=== PATIENT | female | born 1975 | race Caucasian/White ===

== ENCOUNTER → 2016-04-29 | Emergency (ER) | payer MEDICAID ==
[~2016-04-29] VITALS: Ht 167.6 cm; Wt 54.4 kg
[~2016-04-29] MED LIST: ALPRAZOLAM1 MG ORAL; ANTI-ITCH28 G1 TP; ANTIVERT25 MG ORAL; AZITHROMYCIN250 MG PO; BACITRACIN1 APPLIC TOPIC; CEPHALEXIN500 MG ORAL; CIPRO500 MG PO; GOLYTELY4000 ML PO; IBUPROFEN600 MG PO; KEFLEX500 MG ORAL; KENALOG 0.1% CR15 GM APPLIC; LORAZEPAM1 MG ORAL; ONDANSETRON ODT4 MG ORAL; PEPCID20 MG ORAL; PREDNISONE20 MG ORAL; PROMETHAZINE/COD5 ML PO
[2016-04-29 14:25] VITALS: BP 124/89
[2016-04-29] MEDS: Ketorolac 60mg Inj IM ONE (15:22)
[2016-04-29] MEDS: Ondansetron ODT 8mg tab ORAL ONE (15:22)
[2016-04-29 16:04] LABS: APPEARANCE,URINE SLIGHTLY CLOUDY; KETONES,URINE NEGATIVE (NEGATIVE); LEUKOCYTE ESTERASE ,URINE NEGATIVE (NEGATIVE); NITRITE,URINE NEGATIVE (NEGATIVE); PH,URINE 7 (4.5-8.0); PROTEIN,URINE NEGATIVE (NEGATIVE); UROBILINOGEN,URINE NORMAL MG/DL (0.0-1.0)
--- NOTE | 2016-04-29 16:14 | Emergency Room Report ---
History of Present Illness General Chief Complaint: Nausea, Vomiting, and Diarrhea Source: Patient Present Illness HPI 40 YO F walk-in patient endorses 1 month of intermittent nausea and non-bilious , non-bloody vomiting. Worse today. Denies associated fever/chills, abd pain, urinary complaints. + sick contact in daughter at home. Siva previous abd surgeries. Not taking any OTC meds. Also c/o left sided neck pain, worse with movement over last couple of days. Allergies: Coded Allergies: No Known Allergies (Unverified , 12/22/11) Patient History Past Medical History: none Past Surgical History: none Pertinent Family History: none Social History: Denies: alcohol use, drug use, smoking Last Menstrual Period: 04/16/2016 Now: No : 2 Para: 2 Immunizations: UTD Reviewed Nursing Documentation: PMH: Agreed, PSxH: Agreed Review of Systems All Other Systems: negative except mentioned in HPI Physical Exam Vital Signs Date Time Temp Pulse Resp B/P Pulse Ox O2 Delivery O2 Flow Rate FiO2 04/29/16 14:25 98.1 97 16 124/89 99 Room Air Sp02 EP Interpretation: reviewed, normal Head: atraumatic ENT: normal ENT inspection, hearing grossly normal, normal voice Neck: normal inspection, full range of motion, supple, no bony tend, limited range of motion, other - TTp on posterior left SCM with tightness. Worse with looking to left Respiratory: normal inspection, lungs clear, normal breath sounds, no respiratory distress, no retraction, no wheezing Cardiovascular #1: regular rate, rhythm, no edema Gastrointestinal: normal inspection, normal bowel sounds, non tender, soft, no guarding, no hernia Genitourinary: no CVA tenderness Musculoskeletal: normal inspection, back normal, normal range of motion, Jocelyne' s Sign negative Neurologic: normal inspection, alert, oriented x3, responsive, motor strength/ tone normal, speech normal Psychiatric: normal inspection, judgement/insight normal, mood/affect normal Skin: normal inspection, normal color, no rash Lymphatic: normal inspection Medical Decision Making Diagnostic Impression: Primary Impression: Neck muscle spasm Additional Impression: Nausea & vomiting Qualified Codes: R11.2 - Nausea with vomiting, unspecified ER Course 40 YOF with nausea/vomiting without abd pain. VSS. Afebrile. No focal abd ttp on serial exam. Improved with PO zofran Neck pain/spasm improved with IM toradol UA neg LE, nitrites. 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 04/29/16 Ondansetron Odt* (ZOFRAN ODT*) 4 Mg Tab.rapdis 4 MG ORAL BID, #20 TAB 0 Refills Prov: KATINA SALEH M.D. 04/29/16 Patient Instructions: Cervical Sprain, [id number], Nausea and Vomiting, Adult , [id number] Additional Instructions: - Eat lots of small, lite meals - Bananas/rice/apple sauce/toast and bland food until you feel completely better - Take Pepcid twice daily for 1 week - Take zofran as needed 2x a day for nausea Return to ER for worsening nausea/vomiting or severe abdominal pain KATINA SALEH M.D. Apr 29, 2016 16:14
[2016-04-29 16:27] LABS: BACTERIA,URINE FEW /HPF; SQUAMOUS EPITHELIAL CELL,UR MODERATE /LPF (NONE/OCC); WBC,URINE 0-2 /HPF (0 - 2)
== END | disposition home or self-care (01) ==
LOC: EMR 15:10
DX: M62.838 Other muscle spasm (principal); R11.2 Nausea with vomiting, unspecified
CPT/HCPCS: 81003; 81025; 96372; 99284; Q0162

== ENCOUNTER 2017-05-26 13:53 | Emergency (ER) | payer SELFPAY ==
[~2017-05-26] VITALS: Ht 167.6 cm; Wt 59.0 kg
--- NOTE | 2017-05-26 15:28 | Emergency Room Report ---
History of Present Illness General Chief Complaint: Sore Throat Source: Patient, Medical Record Present Illness HPI 41 YO Female presents to the ED c/o : right sided sore throat and nasal congestion x 2 weeks, worsening symptoms. Denies fevers and chills. Reports right ear ache as well. pain is 10/10 in severity. exacerbated with swallowing. denies neck pain or stiffness. Patient states that she finished a course of antibiotics was prescribed to her by her primary care she reports she took amoxicillin and did not have any relief. Patient reports some initial treatment of her symptoms however symptoms return immediately after finishing antibiotics. Denies hoarseness or changes in her voice. Denies inability to swallow as well as her liquids. Denies CP, Palpitations, LOC, AMS, dizziness, Changes in Vision, Sensation, paresthesias, or a sudden severe headache. Allergies: Coded Allergies: No Known Allergies (Unverified , 12/22/11) Patient History Past Medical History: see triage record Past Surgical History: none Pertinent Family History: none Last Menstrual Period: 05/06/17 Immunizations: UTD Reviewed Nursing Documentation: PMH: Agreed, PSxH: Agreed Nursing Documentation-PMH Past Medical History: No History, Except For Review of Systems All Other Systems: negative except mentioned in HPI Physical Exam Vital Signs Date Time Temp Pulse Resp B/P (MAP) Pulse Ox O2 Delivery O2 Flow Rate FiO2 05/26/17 14:02 98.6 107 18 101/36 98 Room Air 98.6 Sp02 EP Interpretation: reviewed, normal General Appearance: no apparent distress, alert, GCS 15, non-toxic Head: normocephalic, atraumatic Eyes: bilateral eye normal inspection, bilateral eye PERRL ENT: hearing grossly normal, no angioedema, normal voice, TMs + canals normal - mild serous fluid noted in the right ear, no bulging or erythema of the TM. , uvula midline, moist mucus membranes, nasal congestion, tonsillar swelling - bilateral, no Pillar swelling, or asymmetrical fullness, uvula is midline. , pharyngeal erythema Neck: full range of motion, no meningismus, no bony tend Respiratory: chest non-tender, lungs clear, normal breath sounds, no rhonchi, no wheezing, speaking full sentences Cardiovascular #1: regular rate, rhythm, tachycardia - initial triage tachycardic 107, re-measurement is 81 Musculoskeletal: back normal, gait/station normal, normal range of motion, non- tender Neurologic: alert, oriented x3, responsive, motor strength/tone normal, sensory intact, speech normal, grossly normal Psychiatric: judgement/insight normal Skin: normal color, no rash, warm/dry, well hydrated Lymphatic: no adenopathy Medical Decision Making PA Attestation Dr. bingham is my supervising Physician whom patient management has been discussed with. Diagnostic Impression: Primary Impression: Pharyngitis Qualified Codes: J02.0 - Streptococcal pharyngitis ER Course Pt. presents to the ED c/o : right sided sore throat and nasal congestion x 2 weeks, worsening symptoms. Denies fevers and chills. Reports right ear ache as well. pain is 10/10 in severity. exacerbated with swallowing. denies neck pain or stiffness. Ddx considered but are not limited to: pharyngitis, strep, [employer], ludwigs angina, abscess, URI Vital signs: are WNL, pt. is afebrile H&PE are most consistent with: pharyngitis presumed strep. ORDERS: None required at this time as the diagnosis is clinical ED INTERVENTIONS: -Decadron IM given strict ED return precautions for worsening of symtoms, d/w pt. if returns will need imaging. conservative trial for now. DISCHARGE: At this time pt. is stable for d/c to home. Will provide printed patient care instructions, and any necessary prescriptions. Care plan and follow up instructions have been discussed with the patient prior to discharge. Last Vital Signs Date Time Temp Pulse Resp B/P (MAP) Pulse Ox O2 Delivery O2 Flow Rate FiO2 05/26/17 14:02 98.6 107 18 101/36 98 Room Air 98.6 Disposition: HOME, SELF-CARE Condition: Stable Scripts Naproxen Sodium (NAPROXEN SODIUM) 275 Mg Tablet 275 MG ORAL TWICE A DAY, #20 TAB Prov: Meg Porter P.A. 05/26/17 Acetaminophen With Codeine (T#3) (TYLENOL #3 TAB*) Y Tab 1 TAB ORAL Q6HR Y for For Pain, #6 TAB Prov: Meg Porter P.A. 05/26/17 Azithromycin* (ZITHROMAX*) 250 Mg Tablet 250 MG ORAL DAILY, #6 TAB Prov: Mge Porter P.A. 05/26/17 Patient Instructions: Sore Throat Additional Instructions: Take medications as directed. Follow up with a Primary Care Provider in 3-5 days, even if your symptoms have resolved. --Please review list of primary care clinics, if you do not already have a primary care provider Return sooner to ED if new symptoms occur, or current symptoms become worse. Do not drink alcohol, drive, or operate heavy machinery while taking Tylenol # 3 as this may cause drowsiness. - Please note that this Emergency Department Report was dictated using [employer] checker technology software, occasionally this can lead to erroneous entry secondary to interpretation by the dictation equipment. Meg Porter May 26, 2017 15:27
[2017-05-26] MEDS ORDERED: ZITHROMAX250 MG ORAL (15:29)
[2017-05-26] MEDS ORDERED: NAPROXEN SODIU275 MG ORAL (15:29)
[2017-05-26] MEDS ORDERED: ACETAMINOPHEN-1 EAC1 ORAL (15:29)
[2017-05-26] MEDS ORDERED: Dexamethasone 4mg/ml vial IM ONE (15:30)
[2017-05-26 15:51] VITALS: BP 107/57
== END 2017-05-26 15:51 | disposition home or self-care (01) ==
LOC: EMR 15:44
DX: J06.9 Acute upper respiratory infection, unspecified (principal)
CPT/HCPCS: 96372; 99284; J1100